=== PATIENT | male | born 1935 | race Two or more races ===

== ENCOUNTER 2024-08-08 14:19 | Emergency (ER) | payer OTHER ==
[~2024-08-08] VITALS: Ht 177.8 cm; Wt 90.0 kg
--- NOTE | 2024-08-08 15:16 | ED.PDOC ---
Musculoskeletal HPI Comments 88y M who presents to the ED via EMS for chief complaint of fall injury. Pt states he was shopping on 08/02 and states he was walking to his car and states he was looking at oncoming car and did not see the curb and fell to the floor . pt denies any associated loss of consciousness but states he has been having unspecified body aches and pains since. Pt states he has been having pain to both legs, R wrist, L arm pain, L elbow, L knee and lower extremity pain. Pt has noted bruise to the L forehead. Pt states since fall, she has been having increased weakness since. Pt otherwise denies any other symptoms at this time. Chief Complaint: Fall Injury Time Seen by MD: 15:08 Primary Care Provider: LU Brown Notes: Medications Allergies: Coded Allergies: NO KNOWN ALLERGIES (Unverified , 08/08/24) Information Source: Patient, Emergency Med Personnel Mode of Arrival: EMS Brought in by: EMS Past Medical History PAST MEDICAL HISTORY: HTN Surgical History: Unknown Family History Family History: Unknown Social History Smoker: Non-Smoker Alcohol: Denies ETOH Use Drugs: Denies Drug Use Lives In: Home Constitutional: denies: chills, diaphoresis, fatigue, fever, malaise, sweats, weakness, others EENTM: denies: blurred vision, double vision, ear bleeding, ear discharge, ear drainage, ear pain, ear ringing, eye pain, eye redness, hearing loss, mouth pain, mouth swelling, nasal discharge, nose bleeding, nose congestion, nose pain , photophobia, tearing, throat pain, throat swelling, voice changes, others Respiratory: denies: cough, hemoptysis, orthopnea, SOB at rest, shortness of breath, SOB with excertion, stridor, wheezing, others Cardiovascular: denies: chest pain, dizzy spells, diaphoresis, Dyspnea on exertion, edema, irregular heart beat, left arm pain, lightheadedness, palpitations, PND, syncope, others Gastrointestinal: denies: abdomen distended, abdominal pain, blood streaked bowels, constipated, diarrhea, dysphagia, difficulty swallowing, hematemesis, melena, nausea, poor appetite, poor fluid intake, rectal bleeding, rectal pain, vomiting, others Genitourinary: denies: burning, dysuria, flank pain, frequency, hematuria, incontinence, penile discharge, penile sore, pain, testicle pain, testicle swelling, urgency, others Neurological: denies: dizziness, fainting, headache, left sided numbness, left sided weakness, numbness, paresthesia, pre-existing deficit, right sided numbness, right sided weakness, seizure, speech problems, tingling, tremors, weakness, others Musculoskeletal: reports: joint pain, muscle pain; denies: back pain, gout, joint swelling, muscle stiffness, neck pain, others Integumetry: denies: bruises, change in color, change in hair/nails, dryness, laceration, lesions, lumps, rash, wounds, others Allergic/Immunocompromised: denies: Difficulty Healing, Frequent Infections, Hives, Itching, others Hematologic/Lymphatic: denies: anemia, blood clots, easy bleeding, easy bruising, swollen glands, others Endocrine: denies: excessive hunger, excessive sweating, excessive thirst, excessive urination, flushing, intolerance to cold, intolerance to heat, unexplained weight gain, unexplained weight loss, others Psychiatric: denies: anxiety, bipolar disorder, depression, hopeless, panic disorder, schizophrenia, sleepless, suicidal, others All Other Systems: Reviewed and Negative Physical Exam General Appearance: No Apparent Distress, Normal HEENT: Other (L forehead bruising) Neck: Full Range of Motion, Non-Tender, Normal, Normal Inspection Respiratory: Chest Non-Tender, Lungs Clear, No Accessory Muscle Use, No Respiratory Distress, Normal Breath Sounds Cardiovascular: No Edema, No JVD, No Murmur, No Gallop, Normal Peripheral Pulses, Regular Rate/Rhythm Breast Exam: Deferred Gastrointestinal: No Organomegaly, Non Tender, No Pulsatile Mass, Normal Bowel Sounds, Soft Genitalia: Deferred Pelvic: Deferred Rectal: Deferred Extremities: Tender (L knee, K shoulder,LLE, R wrist, L elbow) Musculoskeletal : Apperance: Normal Neurologic: Alert, 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 Was a procedure done?: No Differential Diagnosis EXT Differential Diagnosis: Fracture, Sprain, Dislocation, Contusion, Strain, Arthritis, Bursitis X-Ray, Labs, Meds, VS Vital Signs Date Time Temp Pulse Resp B/P (MAP) Pulse Ox O2 Delivery O2 Flow Rate FiO2 08/08/24 17:39 71 18 164/71 (102) 96 08/08/24 16:37 98.2 62 18 171/107 (128) 98.2 08/08/24 15:35 82 20 96 Room Air* 0 21 08/08/24 15:33 98.2 87 20 161/61 (94) 96 98.2 08/08/24 14:27 98.2 89 16 141/69 (93) 98 Lab Test 08/08/24 15:23 Range/Units White Blood Count 8.8 4.4-10.8 10^3/uL Red Blood Count 4.61 4.5-5.90 10^6/uL Hemoglobin 11.2 L 13.5-17.5 g/dL Hematocrit 35.6 L 41.0-53.0 % Mean Corpuscular Volume 77.2 L 80.0-100.0 fL Mean Corpuscular Hemoglobin 24.2 L 28.0-32.0 pg Mean Corpuscular Hemoglobin Concent 31.3 L 32.0-36.0 g/dL Red Cell Distribution Width 15.9 H 11.8-14.3 % Platelet Count 248 140-450 10^3/uL Mean Platelet Volume 9.4 6.9-10.8 fL Neutrophils (%) (Auto) 67.5 37.0-80.0 % Lymphocytes (%) (Auto) 21.2 10.0-50.0 % Monocytes (%) (Auto) 8.9 0.0-12.0 % Eosinophils (%) (Auto) 1.6 0.0-7.0 % Basophils (%) (Auto) 0.8 0.0-2.0 % Neutrophils # (Auto) 6.0 1.6-8.6 10 ^3/uL Lymphocytes # (Auto) 1.9 0.4-5.4 10 ^3/uL Monocytes # (Auto) 0.8 0-1.3 10 ^3/uL Eosinophils # (Auto) 0.1 0-0.8 10 ^3/uL Basophils # (Auto) 0.1 0-0.2 10 ^3/uL Nucleated Red Blood Cells 0.1 % Sodium Level 136 136-145 mmol/L Potassium Level 3.9 3.5-5.1 mmol/L Chloride Level 102 98-107 mmol/L Carbon Dioxide Level 25 20-31 mmol/L Anion Gap 9 5-15 Blood Urea Nitrogen 12 9-23 mg/dL Creatinine 0.82 0.700-1.30 mg/dL Glomerular Filtration Rate Calc 84 >90 mL/min BUN/Creatinine Ratio 14.6 10.0-20.0 Serum Glucose 148 H 74-106 mg/dL Calcium Level 9.3 8.7-10.4 mg/dL Time of 1ST Reevaluation: 15:40 Reevaluation 1ST: Unchanged Time of 2ND Reevaluation: 18:18 Reevaluation 2ND: Improved Patient Education/Counseling: Diagnosis, Treatment, Prognosis, Need For Follow Up Family Education/Counseling: Diagnosis, Treatment, Prognosis, Need For Follow Up, No Family Present Additional Information - I reviewed the following notes from patient's past medical encounters: - The following tests were ordered, and results were reviewed by me: (Labs, X- Ray, EKG): BMP, CBC, cervical CT without contrast, CT head without contrast, L rib x-ray, R wrist x-ray, L elbow x-ray, L shoulder x-ray - Additional information was gathered from interviewing the following independent Historian: (Family, Other Providers, EMT): EMS - I reviewed and agreed with the following test results read by other provider: (X-ray, CT, US): radiologist - I discussed treatments and results with medical personnel and: ( family) pt has not suffered any fractures, dislocations, ptx, intracranial bleed. he is stable for discharge Departure 1 Departure Time of Disposition: 18:19 Impression: Primary Impression: Falling Additional Impression: Contusion Qualified Codes: S20.212A - Contusion of left front wall of thorax, initial encounter Disposition: 01 HOME / SELF CARE / HOMELESS Condition: Good Additional Instructions: rest, use tylenol as needed for pain. follow up with your doctor Discharged With: Self, Relative Critical Care Note Critical Care Time?: No Stability Stability form required: No Heart Score Heart Score: Heart Score Response (Comments) Value History N/A 0 EKG N/A 0 Age N/A 0 Risk Factors N/A 0 Troponin N/A 0 Total 0 I personally scribed for IZA PEREZ MD ([email or web address]) on 08/08/24 at 15:16. Electronically submitted by [employer] Yap (JEAN PAUL). IZA PEREZ MD Aug 08, 2024 15:16
[2024-08-08 15:35] VITALS: PULSE 82; RESP 20; O2SAT 96
[2024-08-08 15:40] LABS: Basophils # (auto) 0.1 10 ^3/uL (0-0.2); Eosinophils # (auto) 0.1 10 ^3/uL (0-0.8); Eosinophils % (auto) 1.6 % (0.0-7.0); Hemoglobin 11.2 g/dL (13.5-17.5); Lymphocytes # (auto) 1.9 10 ^3/uL (0.4-5.4); Lymphocytes % (auto) 21.2 % (10.0-50.0); Monocytes # (auto) 0.8 10 ^3/uL (0-1.3)
[2024-08-08 15:42] LABS: Basophils % (auto) 0.8 % (0.0-2.0); Hematocrit 35.6 % (41.0-53.0); Mean Corpuscular Hemoglobin 24.2 pg (28.0-32.0); Mean Corpuscular Hgb Conc. 31.3 g/dL (32.0-36.0); Mean Corpuscular Volume 77.2 fL (80.0-100.0); Monocytes % (auto) 8.9 % (0.0-12.0); Neutrophils % (auto) 67.5 % (37.0-80.0); Nucleated Red Blood Cells % 0.1 %; Platelet Count (auto) 248 10^3/uL (140-450); Red Blood Cells 4.61 10^6/uL (4.5-5.90); Red Cell Distribution Width 15.9 % (11.8-14.3); White Blood Cell 8.8 10^3/uL (4.4-10.8)
[2024-08-08 15:48] LABS: Chloride 102 mmol/L (98-107); Potassium 3.9 mmol/L (3.5-5.1); Sodium 136 mmol/L (136-145)
[2024-08-08 15:49] LABS: Anion Gap 9 (5-15); Carbon Dioxide 25 mmol/L (20-31)
[2024-08-08 15:50] LABS: Calcium 9.3 mg/dL (8.7-10.4)
[2024-08-08 15:55] LABS: BUN/Creatinine Ratio 14.6 (10.0-20.0); Blood Urea Nitrogen 12 mg/dL (9-23)
[2024-08-08 15:58] LABS: Glucose 148 mg/dL (74-106)
--- NOTE | 2024-08-08 16:14 | DVH ---
EXAM: CT HEAD WITHOUT CONTRAST HISTORY: falling COMPARISON: None TECHNIQUE: Axial images of the head were obtained and reformatted in coronal and sagittal planes. All CT scans at this medical facility are performed using dose modulation techniques as appropriate t o a performed exam including the following: Automated exposure control was utilized; adjustment of th e MA and/or KV according to patient size; and use of iterative reconstruction technique. CT Dose: CTDI volume is 18 mGy. Dose-length product is 1475 mGy*cm FINDINGS: There is age concordant generalized parenchymal volume loss. There are chronic small-vessel ischemic changes in the supratentorial white matter. There is a prominent Virchow ian space in the left bas al ganglia. There is no evidence of acute intracranial hemorrhage, mass, mass effect midline shift. T here is no hydrocephalus or extra-axial fluid collection. Lawrence-white matter differentiation is maint ained. There is a small air-fluid level in the right maxillary sinus. There are retention cysts in the left maxillary sinus. The mastoid air cells are clear. The calvarium is intact. IMPRESSION: 1. No acute intracranial process. 2. Small air-fluid level in the right maxillary sinus suggestive of acute sinusitis. HS:Y
--- NOTE | 2024-08-08 16:27 | DVH ---
CLINICAL INDICATION: falling TECHNIQUE: Left SHOULDER 2+ VIEW XRAY Comparison: None FINDINGS/IMPRESSION: : There is no evidence of acute fracture or dislocation. Soft tissues are unremarkable. IMPRESSION: 1. No fracture of the left shoulder
--- NOTE | 2024-08-08 16:28 | DVH ---
CLINICAL INDICATION: falling TECHNIQUE: Left ELBOW 3 VIEW XRAY Comparison: None FINDINGS/IMPRESSION: : There is no evidence of acute fracture or dislocation. Soft tissues are unremarkable.
--- NOTE | 2024-08-08 16:31 | DVH ---
EXAM: CT CERVICAL WITHOUT CONTRAST HISTORY: falling COMPARISON: None CTDIvol 53.73 mGy, DLP 1475.36 mGy*cm. TECHNIQUE: Multiple axial CT images of the spine were obtained using bone algorithm. Axial and coron al reformatting was done. Bone and soft tissue windows were reviewed. FINDINGS: No CT evidence of definite acute fracture, spinal dislocation, or significant appearing acute subluxa tion is seen. The visualized paraspinal soft tissues are grossly unremarkable. Multilevel degenerative changes of the spine. Straightening normal cervical lordosis. Moderate disc space narrowing at the C5-C6 and C6-C7 levels. Moderate anterior osteophytosis at the C5-C6 and C6-C7 levels. Vascular calcification seen at both ca rotid bifurcations. No central airway lesions. IMPRESSION: 1. No definite CT evidence of acute fracture or dislocation of the cervical spine. 2. Moderate multi level degenerative disc disease 3. Straightening and normal cervical lordosis 4. Prevertebral soft tissues are intact. 5. Visualized posterior fossa which is limited in nature is unremarkable
[2024-08-08 16:37] VITALS: TEMP 98.2
--- NOTE | 2024-08-08 16:58 | DVH ---
EXAMINATION: XY L RIB X RAY INDICATION: Trauma COMPARISON: None TECHNIQUE: Frontal view of the chest and <<>> views of the <<>> ribs history FINDINGS: No focal consolidation, pleural effusion or significant pneumothorax. Normal cardiomediastinal silhou ette. No displaced acute left rib fracture. Chronic left 5th rib fracture. IMPRESSION: No acute cardiopulmonary disease. No acute left rib fracture.
--- NOTE | 2024-08-08 17:00 | DVH ---
CLINICAL INDICATION: Trauma TECHNIQUE: 3 radiographic views of the right wrist were obtained. Comparison: None FINDINGS/IMPRESSION: There is no evidence of acute fracture or dislocation. 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 There is no radiopaque foreign body.
[2024-08-08 17:39] VITALS: BP 164/71; PULSE 71; RESP 18; O2SAT 96
== END 2024-08-08 18:42 | disposition home or self-care (01) ==
LOC: ER 14:19 → EDBD 14:19 → ER 18:42
DX: S00.83XA Contusion of other part of head, initial encounter (principal); I10 Essential (primary) hypertension; M48.02 Spinal stenosis, cervical region; M25.78 Osteophyte, vertebrae; M79.605 Pain in left leg; M79.604 Pain in right leg; M25.531 Pain in right wrist; M79.602 Pain in left arm; M25.522 Pain in left elbow; M25.562 Pain in left knee; W18.09XA Striking against other object with subsequent fall, initial encounter; Y93.01 Activity, walking, marching and hiking; Y92.89 Other specified places as the place of occurrence of the external cause; Y99.8 Other external cause status
CPT/HCPCS: 36415; 70450; 71101; 72125; 73030; 73080; 73110; 80048; 85025